=== PATIENT | male | born 1975 | race Caucasian/White ===

== ENCOUNTER 2017-07-28 20:51 | Emergency (ER) | payer BC ==
[2017-07-28 21:06] VITALS: RESP 18
--- NOTE | 2017-07-28 21:45 | ED ---
Anxiety HPI - General Chief Complaint: Anxiety Stated Complaint: anxiety Time Seen by Provider: 07/28/17 21:22 Source: patient Mode of arrival: ambulatory - History of Present Illness Initial Comments: 42-year-old male patient presents to the emergency department today for chief complaint of anxiety attack. Patient states that he is a and has PTSD. States that he occasionally has severe anxiety attacks. Patient states starting yesterday he began to feel somewhat anxious. States he's been having trouble sleeping. States he feels very fatigued. States that he feels panicky with racing thoughts. Patient states that he cannot make himself relax. States he has tried deep breathing and distraction but it has not been helping. Patient states he does not currently take anything for anxiety. Patient denies any known triggers. Patient denies any suicidal or homicidal ideation. Denies any hallucinations. Denies any use of street drugs or alcohol. Patient denies any recent rash, fever, chills, shortness breath, chest pain, abdominal pain, nausea, vomiting, diarrhea, constipation, back pain, numbness, tingling, dizziness, weakness, hematuria, dysuria, urinary urgency, urinary frequency, headache, visual changes, or any other complaints. - Related Data Home Medications: Previous Rx's Medication Instructions Recorded LORazepam [Ativan] 1 mg PO BID PRN #5 tab 07/28/17 Allergies/Adverse Reactions: Allergies Allergy/AdvReac Type Severity Reaction Status Date / Time No Known Allergies Allergy Verified 07/28/17 21:38 Review of Systems ROS Statement: Those systems with pertinent positive or pertinent negative responses have been documented in the HPI. ROS Other: All systems not noted in ROS Statement are negative. Past Medical History Additional Past Medical History / Comment(s): anxiety History of Any Multi-Drug Resistant Organisms: None Reported Past Surgical History: Appendectomy Past Psychological History: Anxiety Smoking Status: Never smoker Past Alcohol Use History: Rare Past Drug Use History: None Reported General Exam Limitations: no limitations General appearance: alert, in no apparent distress, other (This is a well- developed, well-nourished adult male patient in no acute distress. Vital signs upon presentation are temperature 98.0F, pulse 83, respirations 18, blood pressure 121/70, pulse ox 99% on room air.) Eye exam: Present: normal appearance, PERRL, EOMI. Absent: scleral icterus, conjunctival injection, periorbital swelling ENT exam: Present: normal exam, normal oropharynx, mucous membranes moist Respiratory exam: Present: normal lung sounds bilaterally. Absent: respiratory distress, wheezes, rales, rhonchi, stridor Cardiovascular Exam: Present: regular rate, normal rhythm, normal heart sounds. Absent: systolic murmur, diastolic murmur, rubs, gallop, clicks GI/Abdominal exam: Present: soft, normal bowel sounds. Absent: distended, tenderness, guarding, rebound, rigid Neurological exam: Present: alert, oriented X3, CN II-XII intact Psychiatric exam: Present: anxious. Absent: homicidal ideation, suicidal ideation Skin exam: Present: warm, dry, intact, normal color. Absent: rash Course Vital Signs 07/28/17 07/28/17 21:01 22:56 Temperature 98.0 F 98.5 F Pulse Rate 83 70 Respiratory 18 18 Rate Blood Pressure 121/70 125/68 O2 Sat by Pulse 99 99 Oximetry Medical Decision Making - Medical Decision Making 42-year-old male patient presents to the emergency department today for complaints of increased anxiety. Physical examination is unremarkable. Patient does appear somewhat anxious. Patient denies any suicidal or homicidal ideation. Denies any alcohol or drug use. I did offer to provide emergency psychiatric services evaluation for him however he does have an appointment with mental health services at the [place] tomorrow, and declined. Patient will be given a prescription for a few Ativan to take as needed for anxiety. He is urged to keep his appointment tomorrow. Return parameters discussed in detail. He verbalizes understanding and agrees with this plan. Disposition Clinical Impression: Anxiety attack Disposition: HOME SELF-CARE Condition: Good Instructions: Generalized Anxiety Disorder (ED) Additional Instructions: Take medication as directed. Follow-up as you have planned with mental health services. Return here immediately for any new, worsening, or concerning symptoms. Prescriptions: LORazepam [Ativan] 1 mg PO BID PRN #5 tab PRN Reason: Anxiety Is patient prescribed a controlled substance at d/c from ED?: Yes When asked, does pt state using other controlled substances?: No If prescribed controlled substance>3 days was MAPS reviewed?: Prescribed <3 Days Referrals: None,Stated [Primary Care Provider] - 1-2 days Time of Disposition: 22:46
[2017-07-28 22:58] VITALS: BP 125/68; PULSE 70; TEMP 98.5
== END 2017-07-28 22:58 | disposition home or self-care (01) ==
LOC: EC 20:51
DX: F41.9 Anxiety disorder, unspecified (principal); R53.83 Other fatigue
CPT/HCPCS: 93005; 99283

== ENCOUNTER 2017-08-02 12:37 | Emergency (ER) | payer BC ==
[2017-08-02 13:05] VITALS: BP 109/71; PULSE 79; RESP 18; TEMP 98.2
--- NOTE | 2017-08-02 13:19 | ED ---
General Adult HPI - General Chief complaint: Recheck/Abnormal Lab/Rx Stated complaint: Med Refill Time Seen by Provider: 08/02/17 13:06 Source: patient Mode of arrival: ambulatory Limitations: no limitations - History of Present Illness Initial comments: 42-year-old male patient percents to the emergency department today requesting refill of his Ativan prescription. Patient states that he has history of PTSD with anxiety attacks. Patient states that this week he has been experiencing increased anxiety. He was seen and evaluated here on 07/28/2017 was given a short prescription for Ativan. Patient states he has been taking them sparingly and they have been helping his symptoms however he does not have an appointment with a psychiatrist until . States that he needs a few more to get him through until then. Patient denies any suicidal or homicidal thoughts. Denies taking any other medications. States that today his anxiety seems to be controlled. Patient denies any recent rash, fever, chills, shortness breath, chest pain, abdominal pain, nausea, vomiting, diarrhea, constipation, back pain, numbness, tingling, dizziness, weakness, hematuria, dysuria, urinary urgency, urinary frequency, headache, visual changes, or any other complaints. - Related Data Home Medications Medication Instructions Recorded Confirmed Ibuprofen [Advil] 200 mg PO Q8HR PRN 08/02/17 08/02/17 Previous Rx's Medication Instructions Recorded LORazepam [Ativan] 1 mg PO BID PRN #6 tab 08/02/17 Allergies Allergy/AdvReac Type Severity Reaction Status Date / Time No Known Allergies Allergy Verified 08/02/17 13:22 Review of Systems ROS Statement: Those systems with pertinent positive or pertinent negative responses have been documented in the HPI. ROS Other: All systems not noted in ROS Statement are negative. Past Medical History Past Medical History: GERD/Reflux Additional Past Medical History / Comment(s): anxiety History of Any Multi-Drug Resistant Organisms: None Reported Past Surgical History: Appendectomy Past Psychological History: Anxiety Smoking Status: Never smoker Past Alcohol Use History: Rare Past Drug Use History: None Reported General Exam Limitations: no limitations General appearance: alert, in no apparent distress, other (This is a well- developed, well-nourished adult male patient in no acute distress. Vital signs upon presentation are temperature 98.2F, pulse 79, respirations 18, blood pressure 109/71, pulse ox 98% on room air.) Eye exam: Present: normal appearance, PERRL, EOMI. Absent: scleral icterus, conjunctival injection, periorbital swelling ENT exam: Present: normal exam, normal oropharynx, mucous membranes moist Respiratory exam: Present: normal lung sounds bilaterally. Absent: respiratory distress, wheezes, rales, rhonchi, stridor Cardiovascular Exam: Present: regular rate, normal rhythm, normal heart sounds. Absent: systolic murmur, diastolic murmur, rubs, gallop, clicks Neurological exam: Present: alert, oriented X3, CN II-XII intact Psychiatric exam: Present: normal affect, normal mood Skin exam: Present: warm, dry, intact, normal color. Absent: rash Course Vital Signs 08/02/17 13:02 Temperature 98.2 F Pulse Rate 79 Respiratory 18 Rate Blood Pressure 109/71 O2 Sat by Pulse 98 Oximetry Medical Decision Making - Medical Decision Making 42-year-old male patient presented to the emergency department today for evaluation of increased anxiety requesting prescription for Ativan. Physical examination is unremarkable. Patient does have an appointment with psychiatrist on . We will refill his prescription to get him through until then. Patient is advised that he will be unable to receive these prescriptions here in the future and that all further scheduled to come through his primary care physician or his psychiatrist. Return parameters discussed in detail. He verbalizes understanding and agrees with this plan. Disposition Clinical Impression: Anxiety disorder Disposition: HOME SELF-CARE Condition: Good Instructions: Generalized Anxiety Disorder (ED) Additional Instructions: Take medications as directed. Follow-up with the psychiatrist on as you have planned. Return here immediately for any new, worsening, or concerning symptoms. Prescriptions: LORazepam [Ativan] 1 mg PO BID PRN #6 tab PRN Reason: Anxiety Is patient prescribed a controlled substance at d/c from ED?: Yes When asked, does pt state using other controlled substances?: No If prescribed controlled substance>3 days was MAPS reviewed?: Prescribed <3 Days Referrals: None,Stated [Primary Care Provider] - 1-2 days Time of Disposition: 13:19
== END 2017-08-02 13:29 | disposition home or self-care (01) ==
LOC: EC 12:37
DX: F41.9 Anxiety disorder, unspecified (principal); F43.10 Post-traumatic stress disorder, unspecified; Z76.0 Encounter for issue of repeat prescription; Z79.899 Other long term (current) drug therapy
CPT/HCPCS: 99281